=== PATIENT | female | born 1980 | race Caucasian/White ===

== ENCOUNTER → 2018-11-13 | Emergency (ER) | payer OTHER ==
[~2018-11-13] VITALS: Ht 157.5 cm; Wt 72.6 kg
== END | disposition left against medical advice (07) ==
LOC: ER 00:53
DX: Z53.20 Procedure and treatment not carried out because of patient's decision for unspecified reasons (principal)

== ENCOUNTER 2020-10-07 17:42 | Emergency (ER) | payer OTHER ==
[~2020-10-07] VITALS: Ht 152.4 cm; Wt 73.5 kg
== END 2020-10-07 21:33 | disposition home or self-care (01) ==
LOC: ER 17:42
DX: B34.9 Viral infection, unspecified (principal); Z20.822 Contact with and (suspected) exposure to COVID-19

== ENCOUNTER 2020-12-11 13:25 | Emergency (ER) | payer OTHER ==
[~2020-12-11] VITALS: Ht 157.5 cm; Wt 74.8 kg
[2020-12-11] MEDS ORDERED: NORFLEX100MG PO (17:23)
[2020-12-11] MEDS ORDERED: KETO10TA2 PO (17:23)
== END 2020-12-11 17:28 | disposition home or self-care (01) ==
LOC: ER 13:25
DX: R51.9 Headache, unspecified (principal)